=== PATIENT | female | born 1980 | race Caucasian/White ===

== ENCOUNTER 2017-01-22 10:31 | Emergency (ER) | payer OTHER ==
--- NOTE | 2017-01-22 12:11 | UC ---
Dental HPI - HPI Summary HPI Summary: dental pain x 3 days right upper molar pain , facial swelling, no fever cannot eat due to sever pain with chewing - History of Current Complaint Chief Complaint: UCDentalProblem Stated Complaint: JAW PAIN Time Seen by Provider: 01/22/17 12:05 Hx Obtained From: Patient ?: Yes Onset/Duration: Gradual Onset, Lasting Days - 3, Still Present Severity: Severe Aggravating: Cold, Chewing Alleviating: Nothing Dental: 1 - missing molar - Allergies/Home Medications Allergies/Adverse Reactions: Allergies Allergy/AdvReac Type Severity Reaction Status Date / Time No Known Allergies Allergy Verified 01/22/17 12:02 Home Medications: Home Medications Acetaminophen [Qc Pain Relief Extra Stre] 1,000 mg PO Q4H PRN 01/22/17 [History Confirmed 01/22/17] Vitamin TAB* 1 tab PO DAILY 01/22/17 [History Confirmed 01/22/17] PMH/Surg Hx/FS Hx/Imm Hx Previously Healthy: Yes - Surgical History Surgical History: Yes Surgery Procedure, Year, and Place: ear tubes. T & A - Family History Known Family History: Negative: Diabetes - Social History Alcohol Use: None Substance Use Type: None Smoking Status (MU): Light Every Day Tobacco Smoker Type: Cigarettes Amount Used/How Often: 1/2 ppd Review of Systems Constitutional: Negative Skin: Negative Eyes: Negative ENT: Dental Pain Respiratory: Negative Cardiovascular: Negative All Other Systems Reviewed And Are Negative: Yes Physical Exam Triage Information Reviewed: Yes Appearance: Well-Appearing, Well-Nourished, Pain Distress Vital Signs Reviewed: Yes Eyes: Positive: Conjunctiva Clear ENT Exam: Normal ENT: Positive: Normal ENT inspection, Hearing grossly normal, Pharynx normal Dental: Positive: Gross Decay/Caries @ - #2, Cellulitis @ - #2 Neck: Positive: Supple, Nontender, No Lymphadenopathy Respiratory Exam: Normal Respiratory: Positive: Chest non-tender, Lungs clear, Normal breath sounds, No respiratory distress Cardiovascular: Positive: RRR, No Murmur, Pulses Normal Dental Complaint Course/Dx - Differential Dx/Diagnosis Provider Diagnoses: dental pain Discharge - Discharge Plan Condition: Stable Disposition: HOME Prescriptions: Amoxicillin PO (*) [Amoxicillin 875 MG (*)] 875 mg PO BID #20 tab Patient Education Materials: Toothache (ED) Referrals: No Primary Care Phys,NOPCP [Primary Care Provider] - 7 Days
== END 2017-01-22 12:13 | disposition home or self-care (01) ==
LOC: UCCORT 10:31
DX: K08.89 Other specified disorders of teeth and supporting structures (principal); F17.210 Nicotine dependence, cigarettes, uncomplicated
CPT/HCPCS: 99212; G0463

== ENCOUNTER 2017-10-04 16:41 | Emergency (ER) | payer OTHER ==
--- OUTSIDE RECORDS SUMMARY | 2017-10-04 19:18 | XMS REPORT ---
:1980 External Reference #:[id number] Author Organization [facility] Address [address], [address] [place] [address] Phone [phone] Care Team Providers Name Role Phone Devaughn Diaz NP Care Team Information Quality Assurance Consultant Unavailable Devaughn Diaz NP Primary Care Physician Unavailable Payers Type Date Identification Numbers Payment Provider Subscriber Commercial Policy Number: [id number] [facility] Libertad Brown PayID: [id number] [address] [place] [address] Problems Date Description Provider Status Onset: 09/08/2015 Gastroesophageal reflux disease DIONISIO Soto Active Onset: 09/08/2015 Cannabis abuse, uncomplicated DIONISIO Soto Active Onset: 09/08/2015 Generalized anxiety disorder DIONISIO Soto Active Onset: 09/16/2015 Dental abscess Active Family History Date Family Member(s) Problem(s) Comments Father Substance abuse Father Heart Attack Mother Hypertension Mother Cervical Cancer Mother Obesity had gastric byass Paternal Grandfather Unknown Paternal Grandmother Unknown Maternal Grandfather Hypercholesterolemia Maternal Grandfather Diabetes Maternal Grandfather Obesity Onset: (age 55 Years) Maternal Grandfather Heart Attack Onset: (age 50 Years) Maternal Grandmother Breast Cancer Maternal Grandmother Hypertension Social History Type Date Description Comments Education Highest level completed, 12th grade Lives With Son Lives With Spouse Diet Patient follows no dietary restrictions Work Status Not Currently 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 2017 s mouth an DIONISIO Diaz hour prio to bedtime No Active 09/06/ Hx Unknown Medications 2017 - 2017 Amoxicillin/Cla 09/15/ Hx Tablets 875-125mg 20tab Every 12 Unknown vulanate 2015 - s Hours Potassium 2015 Mobic 09/01/ Hx Table[facility] 7.[facility] s two DIONISIO Diaz 09/06/ tablets 2018 by mouth every day as needed for back/hip pain No Active 08/29/ Hx Unknown Medications 2015 - 2015 Omeprazole 08/29/ Hx Capsules 20mg 30cap 1 by K21.9 Devaughn 2015 - DR sherwood mouth DIONISIO Diaz 09/06/ every 2018 day Arthrotec 08/29/ Hx Tablets 50-0.2mg 90tab one M70.72 [facility] sherwood tablet DIONISIO Diaz 09/01/ up to 2015 three times a day with food Medications Administered in Office Medication Date Status Form Strength Qnty SIG Indications Ordering Provider PPD 09/06/ [facility]ION[facility] Vital Signs Date Vital Result Comment 09/06/2017 BP Systolic Sitting Left Arm 118 mmHg BP Diastolic Sitting Left Arm 78 mmHg Heart Rate 80 /min Respiratory Rate 18 /min Height 67 inches 5'7" Weight 223.00 lb BMI (Body Mass Index) 34.9 kg/m2 BSA (Body Surface Area) 2.12 m2 [place] body weight in kilograms 61 09/08/2015 BP Systolic Sitting Left Arm 114 mmHg BP Diastolic Sitting Left Arm 72 mmHg Height 67 inches 5'7" Weight 189.00 lb BMI (Body Mass Index) 29.6 kg/m2 BSA (Body Surface Area) 1.97 m2 Last Menstrual Period [id number] 08/29/2015 BP Systolic 118 mmHg BP Diastolic 72 mmHg Height 67 inches 5'7" Weight 187.00 lb BMI (Body Mass Index) 29.3 kg/m2 BSA (Body Surface Area) 1.97 m2 Last Menstrual Period [id number] Results Test Date Test Result H/L Range Note CBC 06/09/2017 White Blood Count 11.0 K/uL High 3.1-10.7 1 Red Blood Count 4.15 M/uL 3.90-5.40 1 Hemoglobin 13.5 gm/dL 11.6-15.8 1 Hematocrit 39.1 % 36.0-46.1 1 Mean Cell Volume 94.2 fl 80.9-99.0 1 Mean Corpuscular HGB 32.5 pg 25.9-32.7 1 Mean Corpuscular HGB Conc 34.5 g/dL High 30.8-34.3 1 Platelet Count 302 K/uL 155-360 1 Red Cell Distri Width %CV 11.9 % 11.7-14.4 1 Mean Platelet Volume 9.6 fL 8.9-12.4 1 Ua Routine 06/09/2017 Urine Color YELLOW Yellow 1 Urine Clarity CLEAR Clear 1 Urine Glucose - Dipstick NEGATIVE mg/dL Negative 1 Urine Bilirubin - Dipstick NEGATIVE Negative 1 Urine Ketone NEGATIVE mg/dL Negative 1 Urine Specific [place] >=1.030 1.010-1.030 1 Urine Blood SMALL Negative 1 Urine PH 5.5 Low 6.5-7.5 1 Urine Protein - Dipstick TRACE mg/dL Negative 1 Urine Urobilinogen - Dipstick 0.2 E.U./dL 0.2-1.0 1 Urine Nitrite - Dipstick NEGATIVE Negative 1 Urine Leuk Esterase NEGATIVE Negative 1 Urine RBC 0-2 rbc/hpf 0-2 1 Urine WBC 0-2 wbc/hpf 0-7 1 Urine Epithelial Cells MANY /lpf None Seen 1, 2 Urine Bacteria VERY FEW None Seen 1 Urine Mucus MODERATE None Seen 1 Source: URINE, CLEAN CAT <SEE NOTE> 1, 3 Laboratory test finding 06/09/2017 HCG, Quant < 1.0 mIU/mL 1, 4 Type And Screen 06/09/2017 Patient Blood Type O POS 1 Antibody Screen Negative Negative 1 Hemoglobin/Hematocrit 04/10/2017 Hemoglobin 10.2 gm/dL Low 11.6-15.8 5 Hematocrit 30.6 % Low 36.0-46.1 5 CBC 04/07/2017 White Blood Count 14.0 K/uL High 3.1-10.7 6 Red Blood Count 3.22 M/uL Low 3.90-5.40 6 Hemoglobin 10.8 gm/dL Low 11.6-15.8 6 Hematocrit 32.2 % Low 36.0-46.1 6 Mean Cell Volume 100.0 fl High 80.9-99.0 6 Mean Corpuscular HGB 33.5 pg High 25.9-32.7 6 Mean Corpuscular HGB Conc 33.5 g/dL 30.8-34.3 6 Platelet Count 285 K/uL 150-400 6 Red Cell Distri Width %CV 12.8 % 11.7-14.4 6 Mean Platelet Volume 10.4 fL 8.9-12.4 6 Type And Screen 04/07/2017 Patient Blood Type O POS 6 Antibody Screen Negative Negative 6 Laboratory test 04/07/2017 Treponema Antibody Negative Negative 7, 8 finding [place] Nitrite Ur Ql 08/31/2016 Nitrite Ur Ql Negative Negative Strip.auto Strip.auto Prot Ur 08/31/2016 Prot Ur Negative Negative Strip.auto-mCnc Strip.auto-mCnc Urine appearance 08/31/2016 Urine appearance Clear Clear determination determination Urine glucose 08/31/2016 Urine glucose Negative Negative measurement by measurement by automated test strip automated test strip (mass/volume) Urine hemoglobin 08/31/2016 Urine hemoglobin Trace Negative detection by detection by automated test strip automated test strip Urine human 08/31/2016 Urine human Positive High Negative chorionic chorionic gonadotropin (hCG) gonadotropin (hCG) detection detection Urobilinogen Ur 08/31/2016 Urobilinogen Ur 0.2 0.2-1.0 Strip-aCnc Strip-aCnc pH Ur Strip.auto 08/31/2016 pH Ur Strip.auto 5.5 Low 6.5-7.5 Mucus [presence] in 08/31/2016 Mucus [presence] in Large None Seen urine sediment by urine sediment by light micros light microscopy Leukocyte esterase 08/31/2016 Leukocyte esterase Trace High Negative Ur Ql Strip.auto Ur Ql Strip.auto Ketones Ur 08/31/2016 Ketones Ur Trace High Negative Strip.auto-mCnc Strip.auto-mCnc Epithelial cells 08/31/2016 Epithelial cells Moderate None Seen [presence] in urine [presence] in urine sediment by l sediment by light microscopy Color Ur 08/31/2016 Color Ur Yellow Yellow Bilirub Ur Ql 08/31/2016 Bilirub Ur Ql Negative Negative Strip.auto Strip.auto Urine Culture 08/31/2016 Urine Culture MIXED URETHRAL 9, 10 F <SEE NOTE> Quantity > 100,000 CFU/mL 9, 11 Ua Routine 08/31/2016 Urine Color YELLOW Yellow 9 Urine Clarity CLEAR Clear 9 Urine Glucose - Dipstick NEGATIVE mg/dL Negative 9 Urine Bilirubin - Dipstick NEGATIVE Negative 9 Urine Ketone TRACE mg/dL High Negative 9 Urine Specific [place] >=1.030 1.010-1.030 9 Urine Blood TRACE Negative 9 Urine PH 5.5 Low 6.5-7.5 9 Urine Protein - Dipstick NEGATIVE mg/dL Negative 9 Urine Urobilinogen - Dipstick 0.2 E.U./dL 0.2-1.0 9 Urine Nitrite - Dipstick NEGATIVE Negative 9 Urine Leuk Esterase TRACE Negative 9 Urine RBC 0-2 rbc/hpf 0-2 9 Urine WBC 5-10 wbc/hpf 0-7 9 Urine Epithelial Cells MODERATE /lpf None Seen 9, 12 Urine Mucus LARGE None Seen 9 Source: URINE, CLEAN CAT <SEE 9, 13 NOTE> Urine HCG (Qualitative) 08/31/2016 Urine HCG (Qualitative) POSITIVE Negative 9 Source: URINE, CLEAN CAT <SEE NOTE> 9, 14 Laboratory test finding 09/03/2015 Basophils # (Auto) 0.04 0.0-0.1 Basophils (%) (Auto) 0.3 0.0-1.1 Direct Bilirubin 0.1 0.0-0.2 Eosinophils # (Auto) 0.08 0.0-0.5 Eosinophils (%) (Auto) 0.6 0.0-6.6 Lymphocytes # (Auto) 2.78 1.8-7.0 Lymphocytes (%) (Auto) 20.8 17.0-46.1 Manual Slide Review (Hematology) See Note 15 Monocytes # (Auto) 0.96 High 0.3-0.9 Monocytes (%) (Auto) 7.2 4.3-13.2 Neutrophils # (Auto) 9.53 High 1.8-7.0 Neutrophils (%) (Auto) 71.1 40.4-72.8 RDW Coefficient of Variation 12.2 11.7-14.4 Red Cell Distribution Width 43.0 3-47 Sodium Level 140 136-145 Laboratory test finding 09/03/2015 Slide Review See Note 16, 17 CBC W/Automated Diff 09/03/2015 White Blood Count 13.4 K/uL High 3.1-10.7 16 Red Blood Count 4.04 M/uL 3.90-5.40 16 Hemoglobin 13.3 gm/dL 11.6-15.8 16 Hematocrit 39.8 % 36.0-46.1 16 Mean Cell Volume 98.5 fl 80.9-99.0 16 Mean Corpuscular HGB 32.9 pg High 25.9-32.7 16 Mean Corpuscular HGB Conc 33.4 g/dL 30.8-34.3 16 Platelet Count 262 K/uL 155-360 16 Red Cell Distri Width SD 43.0 fl 3-47 16 Red Cell Distri Width %CV 12.2 % 11.7-14.4 16 Mean Platelet Volume 10.2 fL 8.9-12.4 16 Neut% 71.1 % 40.4-72.8 16 Lymph % 20.8 % 17.0-46.1 16 [place] % 7.2 % 4.3-13.2 16 Eo% 0.6 % 0.0-6.6 16 Bas% 0.3 % 0.0-1.1 16 Neut# 9.53 K/uL High 1.8-7.0 16 Lymph # 2.78 K/uL 1.8-7.0 16 [place] # 0.96 K/uL High 0.3-0.9 16 Eos # 0.08 K/uL 0.0-0.5 16 Baso # 0.04 K/uL 0.0-0.1 16 Comprehensive Metabolic Panel 09/03/2015 Glucose 88 mg/dL 74-106 16 BUN 12 mg/dL 7-18 16 Creatinine 0.7 mg/dL 0.6-1.3 16 Glom Filtration Rate, Estimate >60 mL/min >60 16 If >60 mL/min >60 16, 18 BUN/Creat 17.1 ratio 16 Sodium 140 mmol/L 136-145 16 Potassium 4.1 mmol/L 3.5-5.1 16 Chloride 108 mmol/L High 98-107 16 Carbon Dioxide 24 mmol/L 21-32 16 Anion Gap 8 mEq/L 8-16 16 Calcium 8.5 mg/dL 8.5-10.1 16 Total Protein 7.3 g/dL 6.4-8.2 16 Albumin 3.7 g/dL 3.4-5.0 16 Globulin 3.6 g/dL 1.9-4.3 16 Alb/Glob 1.0 ratio 16 Bilirubin,Total 0.4 mg/dL 0.2-1.0 16 Sgot/Ast 17 U/L 15-37 16 SGPT/Alt 25 U/L 12-78 16 Alkaline Phosphatase 58 U/L 45-117 16 Liver - Hepatic Panel 09/03/2015 Total Protein 7.3 g/dL 6.4-8.2 16 Albumin 3.7 g/dL 3.4-5.0 16 Globulin 3.6 g/dL 1.9-4.3 16 Alb/Glob 1.0 ratio 16 Bilirubin,Total 0.4 mg/dL 0.2-1.0 16 Bilirubin,Direct 0.1 mg/dL 0.0-0.2 16 Bilirubin,Indirect 0.3 mg/dL 0.0-0.9 16 Sgot/Ast 17 U/L 15-37 16 SGPT/Alt 25 U/L 12-78 16 Alkaline Phosphatase 58 U/L 45-117 16 Lipid Panel 09/03/2015 Cholesterol 151 mg/dL <200 16, 19 Triglycerides 93 mg/dL <150 16, 20 HDL Cholesterol 54 mg/dL >40 16, 21 LDL-Cholesterol 78 mg/dL < 100 16, 22 H Pylori, Igm, Igg, 09/03/2015 Helicobacter Pylori, Igg <0.9 U/mL 0.0- 0.8 16, 23 Iga AB Helicobacter Pylori, Iga Abs < 9.0 units 0.0-8.9 16, 24 Helicobacter Pylori, Igm Abs < 9.0 units 0.0-8.9 16, 25 1 [facility] [id number] 2 POSSIBLE UROGENITAL CONTAMINATION. 3 URINE, CLEAN CATCH 4 Approximate Gestational Age and Total BHCG Range: 0.2 - 1 Week........................5-50 mIU/mL 1 - 2 Weeks.....................50-500 mIU/mL 2 - 3 Weeks..................100-5,000 mIU/mL 3 - 4 Weeks.................500-10,000 mIU/mL 4 - 5 Weeks...............1,000-50,000 mIU/mL 5 - 6 Weeks.............10,000-100,000 mIU/mL 6 - 8 Weeks.............15,000-200,000 mIU/mL 2 - 3 Months............10,000-100,000 mIU/mL 5 38 WKS OLIGOHYDRAMNIOUS 6 ZO2.9 7 38 WKS OLIGOHYDRAMNIOUS 8 Performed at: - [facility] [id number] Vice President Of Talent Acquisition: Agustin Weldon MD, Phone: [phone] 9 UNSURE IF , EARLY, PELVIC PAIN 10 MIXED URETHRAL GRACE 11 > 100,000 CFU/mL 12 POSSIBLE UROGENITAL CONTAMINATION. 13 URINE, CLEAN CATCH 14 URINE, CLEAN CATCH 15 Instrument flagged sample for slide review. No immature WBC's noted. RBC morphology essentially normal. Platelet estimate=Normal 16 Libertad was seen and results discussed. 17 Instrument flagged sample for slide review. No immature WBC's noted. RBC morphology essentially normal. Platelet estimate=NORMAL 18 Note: Persistent reduction for 3 months or more in an eGFR <60 mL/min/1.73 m2 defines CKD. Patients with eGFR values >/=60 mL/min/1.73 m2 may also have CKD if evidence of persistent proteinuria is present. The original MDRD equation for estimated GFR is not valid for patients less than 18 years of age. Additional information may be found at www.kdoqi.org. 19 Reference Guidelines*: Desirable: ........... < 200 mg/dL Borderline High: ..... 200-239 mg/dL High: ................ >=240 mg/dL * The National Cholesterol Education Program (NCEP) 20 Reference Guidelines*: Normal: ............. < 150 mg/dL Borderline High: .... 150-199 mg/dL High: ............... 200-499 mg/dL Very High: .......... > 500 mg/dL * Source: National Cholesterol Education Program (NCEP) 21 Reference Guidelines*: Low HDL: ..... < 40 mg/dL Normal: ..... 40-60 mg/dL Desirable: ... > 60 mg/dL *The National Cholesterol Education Program(NCEP) 22 Reference Guidelines*: Optimal:........... <100 mg/dL Near Optimal....... 100-129 mg/dL Borderline High.... 130-159 mg/dL High............... 160-189 mg/dL Very High.......... >=190 mg/dL * Source: National Cholesterol Education Program (NCEP) 23 Negative <0.9 Indeterminate 0.9 - 1.0 Positive >1.0 24 Negative <9.0 Equivocal 9.0 - 11.0 Positive >11.0 25 Negative <9.0 Equivocal 9.0 - 11.0 Positive >11.0 This test was developed and its performance characteristics determined by [facility]. It has not been cleared or approved by the Food and Drug Administration. Results of this test are for investigational purposes only. The result should not be used as a diagnostic procedure without confirmation of the diagnosis by another medically diagnostic product or procedure. Performed at: RN - [facility] [address] [id number] Vice President Of Talent Acquisition: Victoria Pimentel MD, Phone: [phone] Procedures Description No Information Encounters Type Date Location Provider CPT E/M Dx Office Visit 09/08/2017 1:30p Family Medicine Family Nurse [address]132 Z11.1 Office Visit 09/06/2017 8:45a Family Medicine DIONISIO Soto [address]782 K21.9 F32.89 G47.9 Z11.1 H02.401 M54.5 Office Visit 09/08/2015 1:00p [facility] Devaughn Diaz, [facility] [address] K21.9 M70.72 F41.1 F12.10 Office Visit 08/29/2015 9:45a [facility] Devaughn Diaz, [facility] [address] K21.9 M70.72 M70.71 Plan of Care Future Appointment(s):10/11/2017 3:00 pm - Jovanny Reyna [facility] at [facility]/ 27/2018 - Devaughn DiazSOFIAK21.9 Gastro-esophageal reflux disease without esophagitisComments:Continue with TUMs as needed, but could do GI referral if Sx continueDiscussed GERD diet: avoid hot spicy foods, tomato based products, acidic foods such as orange juice as well as spearmint and peppermint (this includes chewing gum). Avoid tight fitting clothing and belts, as these delay emptying ofthe stomach. Don't lay down for 2 hours after eating, and try to eat smaller meals, adding in smallsnacks between. Raising the head of the bed by several inches may also help night time symptoms.F32.89 Other specified depressive ptceewtuV78.9 Sleep disorder, unspecifiedNew Medication: Amitriptyline HCL 25 mgComments:Discussed good sleep hygeineFollow up:10-14 days F/U sleep and LBP (30 min)Z11.1 Encounter for screening for respiratory uljijwpovwbmV46.401 Unspecified ptosis of right eyelidReferral:Jovanny Reyna MD , PlgvmuovabrkdD31.5 Low back painComments:Discussed low back and leg stretches - demonstratedtry to perform twice daily
[2017-10-04 19:49] VITALS: BP 142/60
--- NOTE | 2017-10-04 20:13 | UC ---
UC General HPI - HPI Summary HPI Summary: pt is c/o a dry scratchy throat for a week. no fever. - History of Current Complaint Chief Complaint: UCRespiratory Stated Complaint: SORE THROAT Time Seen by Provider: 10/04/17 19:35 Hx Obtained From: Patient Hx Last Menstrual Period: child 6 mos. ago Onset/Duration: Gradual Onset Timing: Constant Pain Intensity: 0 Aggravating: nothing Alleviating: nothing Associated Signs & Symptoms: Negative: Fever - Allergy/Home Medications Allergies/Adverse Reactions: Allergies Allergy/AdvReac Type Severity Reaction Status Date / Time No Known Allergies Allergy Verified 10/04/17 19:40 Home Medications: Home Medications Eucalyptus/Menthol [[place] Cough Drops] 1 kierra MT SEE INSTRUCTIONS PRN 10/04/17 [ History Confirmed 10/04/17] PMH/Surg Hx/FS Hx/Imm Hx Previously Healthy: Yes - Surgical History Surgical History: Yes Surgery Procedure, Year, and Place: ear tubes. T & A - Family History Known Family History: Negative: Diabetes - Social History Lives: With Family Alcohol Use: None Substance Use Type: None Smoking Status (MU): Light Every Day Tobacco Smoker Type: Cigarettes Amount Used/How Often: 1/2 ppd - Immunization History Vaccination Up to Date: Yes Review of Systems Constitutional: Negative Skin: Negative Eyes: Negative ENT: Sore Throat Respiratory: Negative Cardiovascular: Negative Gastrointestinal: Negative Genitourinary: Negative Motor: Negative Neurovascular: Negative Musculoskeletal: Negative Neurological: Negative Psychological: Negative Is Patient Immunocompromised?: No All Other Systems Reviewed And Are Negative: Yes Physical Exam Triage Information Reviewed: Yes Appearance: Well-Appearing Vital Signs: Initial Vital Signs Temp 98.8 F 10/04/17 19:41 Pulse 88 10/04/17 19:41 Resp 18 10/04/17 19:41 BP 142/60 10/04/17 19:41 Pulse Ox 100 10/04/17 19:41 Vital Signs Reviewed: Yes Eyes: Positive: Conjunctiva Clear ENT: Positive: Pharyngeal erythema, TMs normal, Uvula midline. Negative: Nasal congestion, Nasal drainage, Tonsillar swelling, Tonsillar exudate, Trismus, Muffled voice Neck: Positive: Supple, Nontender, No Lymphadenopathy Respiratory: Positive: Lungs clear, Normal breath sounds Cardiovascular: Positive: RRR, No Murmur Abdomen Description: Positive: Nontender, No Organomegaly, Soft Bowel Sounds: Positive: Present Musculoskeletal: Positive: ROM Intact Neurological: Positive: Alert Psychological: Positive: Age Appropriate Behavior Skin Exam: Normal Diagnostics - Laboratory Diagnostic Studies Completed/Ordered: rapid strep=neg Course/Dx - Course Course Of Treatment: rapid strep=neg, tx supportive. - Differential Dx - Multi-Symptom Provider Diagnoses: sore throat Discharge - Sign-Out/Discharge Documenting (check all that apply): Discharge - Discharge Plan Condition: Stable Disposition: HOME Patient Education Materials: Pharyngitis (ED) Referrals: Lilli Diaz NP [Primary Care Provider] - 5 Days - Billing Disposition and Condition Condition: STABLE Disposition: HOME
== END 2017-10-04 20:21 | disposition home or self-care (01) ==
LOC: UCCORT 16:41
DX: J02.9 Acute pharyngitis, unspecified (principal); F17.210 Nicotine dependence, cigarettes, uncomplicated
CPT/HCPCS: 87651; 99211; G0463